=== PATIENT | female | born 1960 | race Caucasian/White ===

== ENCOUNTER 2017-08-26 10:50 | Inpatient (IN) | payer MEDICAID ==
[~2017-08-26] VITALS: Ht 152.4 cm; Wt 77.1 kg
[2017-08-26] MEDS ORDERED: ACYCLOVIR800 MG PO (11:55)
[2017-08-26] MEDS ORDERED: HYDROXYCHLOROQ200 MG PO (11:55)
[2017-08-26] MEDS ORDERED: APAP/HYDROCODON1 T15 PO (11:56)
[2017-08-26] MEDS ORDERED: PRE20 PO (11:57)
[2017-08-26 12:06] LABS: BASOPHIL % 0.4 % (0-2); PLATELET COUNT 301 x10^3mcL (130-400); RED CELL DISTRIBUTION WIDTH 13.8 % (11.5-14.5)
[2017-08-26 12:29] LABS: CALCIUM 9.9 mg/dL (8.5-10.1); CARBON DIOXIDE 24.7 mmol/L (21-32); CHLORIDE SERUM 100 mmol/L (98-107); CREATININE SERUM 0.8 mg/dL (0.6-1.0); GFR1 > 60 mL/min; GLUCOSE SERUM 117 mg/dL (74-106); POTASSIUM SERUM 4.2 mmol/L (3.5-5.1); SODIUM SERUM 138 mmol/L (136-145)
[2017-08-26 12:41] LABS: ALKALINE PHOSPHATASE 65 U/L (46-116); ALT/SGPT 33 U/L (14-59); AST/SGOT 18 U/L (15-37); BILIRUBIN TOTAL 0.25 mg/dL (0.20-1.00); TOTAL PROTEIN, SERUM 7.9 g/dL (6.4-8.2)
[2017-08-26 12:42] LABS: CK-MB 0.5 ng/mL (0-3.6)
[2017-08-26 14:36] LABS: T3 TOTAL 0.91 ng/mL
[2017-08-26 14:43] LABS: MAGNESIUM 2.4 mg/dL (1.8-2.4); PHOSPHOROUS 2.8 mg/dL (2.5-4.9)
[2017-08-26 14:52] LABS: CHOLESTEROL/HDL RATIO 3.4
[2017-08-26 14:54] LABS: FREE T4 1.25 ng/dL (0.76-1.46); T4(THYROXINE) 11.1 ug/dL (4.7-13.3)
[2017-08-26 14:58] VITALS: BP 139/78
[2017-08-26 16:55] VITALS: BP 149/72
[2017-08-26 18:31] LABS: UA SPECIFIC GRAVITY <=1.005 (1.005-1.035); microscopic required? YES; urine erythrocyte TRACE (NEGATIVE)
[2017-08-26 18:37] LABS: AMPHETAMINE QUAL UR NONE DETECTED (NEG <=1000)
[2017-08-26 21:55] VITALS: BP 118/82
[2017-08-27 04:35] VITALS: BP 149/98
[2017-08-27 06:23] VITALS: BP 109/58
[2017-08-27 07:55] LABS: BASOPHIL % 0.2 % (0-2); PLATELET COUNT 284 x10^3mcL (130-400); RED CELL DISTRIBUTION WIDTH 13.7 % (11.5-14.5)
[2017-08-27 08:09] LABS: CARBON DIOXIDE 22.8 mmol/L (21-32); CREATININE SERUM 2.2 mg/dL (0.6-1.0); MAGNESIUM 2.4 mg/dL (1.8-2.4); PHOSPHOROUS 5.9 mg/dL (2.5-4.9); POTASSIUM SERUM 4.6 mmol/L (3.5-5.1)
[2017-08-27 18:06] VITALS: BP 121/68
[2017-08-27 19:56] VITALS: BP 118/61
[2017-08-28 04:57] VITALS: BP 113/66
[2017-08-28 07:11] LABS: BASOPHIL % 0.3 % (0-2); PLATELET COUNT 252 x10^3mcL (130-400)
[2017-08-28 07:40] LABS: CARBON DIOXIDE 23.4 mmol/L (21-32); CREATININE SERUM 2.8 mg/dL (0.6-1.0); PHOSPHOROUS 5.5 mg/dL (2.5-4.9)
[2017-08-28 09:35] VITALS: BP 123/64
[2017-08-28 12:00] VITALS: BP 113/72
[2017-08-28 17:50] VITALS: BP 103/46
[2017-08-28 22:07] VITALS: BP 107/51
[2017-08-29 04:48] VITALS: BP 108/51
[2017-08-29 08:01] LABS: BASOPHIL % 0.3 % (0-2); PLATELET COUNT 247 x10^3mcL (130-400); RED CELL DISTRIBUTION WIDTH 14.1 % (11.5-14.5)
[2017-08-29] MEDS ORDERED: VAL500 PO (08:07)
[2017-08-29] MEDS ORDERED: NEU300 PO (08:08)
[2017-08-29] MEDS ORDERED: NOVAPLUS LIDOCAI5 ML TOP (08:08)
[2017-08-29 08:11] LABS: CALCIUM 9.5 mg/dL (8.5-10.1); CARBON DIOXIDE 22.3 mmol/L (21-32); CREATININE SERUM 1.8 mg/dL (0.6-1.0); PHOSPHOROUS 3.3 mg/dL (2.5-4.9); POTASSIUM SERUM 4.5 mmol/L (3.5-5.1)
[2017-08-29] MEDS ORDERED: PREDNISONE10 MG PO (08:11)
[2017-08-29] MEDS ORDERED: PRE20 PO (09:36)
[2017-08-29 10:18] VITALS: Ht 152.4 cm; Wt 77.1 kg
[2017-08-29 12:03] VITALS: BP 108/51
== END 2017-08-29 14:45 | disposition home or self-care (01) | DRG 469 ==
LOC: ED 10:50 → DU 13:28 → MU 13:28 → DU 14:37 → MU 08-29 05:07
PROVIDERS: Emergency Medicine; Family Medicine; Family Medicine Sports Medicine
DX: N17.0 Acute kidney failure with tubular necrosis (principal); C85.90 Non-Hodgkin lymphoma, unspecified, unspecified site; R65.10 Systemic inflammatory response syndrome (SIRS) of non-infectious origin without acute organ dysfunction; B02.9 Zoster without complications; E83.39 Other disorders of phosphorus metabolism; M06.9 Rheumatoid arthritis, unspecified; Z90.710 Acquired absence of both cervix and uterus; R73.03 Prediabetes; Z82.49 Family history of ischemic heart disease and other diseases of the circulatory system; L30.9 Dermatitis, unspecified; F41.9 Anxiety disorder, unspecified; R31.9 Hematuria, unspecified; E78.5 Hyperlipidemia, unspecified
CPT/HCPCS: 83880; 84439; J0133; J2060; J2405; J3010; J3490; J7030; J7050; J7512; Q0092